=== PATIENT | female | born 2000 | race African-American/Black ===

== ENCOUNTER 2020-04-18 23:41 | Emergency (ER) | payer BC, MEDICAID, OTHER ==
[2020-04-19] MEDS ORDERED: IPRATROPIUM/ALBUTEROL 0.5-2.5 MG/3 ML AMPUL NEB ONE (00:17)
--- NOTE | 2020-04-19 00:19 | ER Document Report ---
ED Medical Screen (RME) - General Chief Complaint: Shortness Of Breath Stated Complaint: SHORTNESS OF BREATH AND COUGH Time Seen by Provider: 04/19/20 00:17 Primary Care Provider: RUBINA GUO MD [Primary Care Provider] - Follow up as needed Mode of Arrival: Ambulatory Information source: Patient Notes: Patient is a morbidly obese 20-year-old -[place] female coming in today with shortness of breath and symptoms of Covid. She tested positive for coronavirus yesterday while at college. She did not have her inhaler while she was there. She was told to come to the hospital to get checked to make sure she did not have pneumonia. General exam nontoxic Cardiac regular rate and rhythm Pulmonary diminished breath sounds bilaterally Abdomen protuberant Neuro no focal deficits I have greeted and performed a rapid initial assessment of this patient. A comprehensive ED assessment and evaluation of the patient, analysis of test results and completion of the medical decision making process will be conducted by additional ED providers. TRAVEL OUTSIDE OF THE [place] IN LAST 30 DAYS: No Doctor's Discharge - Discharge Referrals: RUBINA GUO MD [Primary Care Provider] - Follow up as needed
[2020-04-19 01:33] LABS: ABSOLUTE LYMPHOCYTES (AUTO) 0.8 10^3/uL (0.5-4.7); ABSOLUTE MONOCYTES (AUTO) 0.4 10^3/uL (0.1-1.4); ABSOLUTE NEUT (AUTO) 3.6 10^3/uL (1.7-8.2); BASOPHILS % (AUTO) 0.4 % (0-2); HEMOGLOBIN 13.9 g/dL (12.0-15.5); LYMPHOCYTES % (AUTO) 16.4 % (13-45); MEAN CORPUSCULAR HEMOGLOBIN 27.7 pg (27.0-33.4); MEAN CORPUSCULAR HGB CONC 33.9 g/dL (32.0-36.0); MEAN CORPUSCULAR VOLUME 82 fl (80-97); MONOCYTES % (AUTO) 8.5 % (3-13); PLATELET COUNT 233 10^3/uL (150-450); RED BLOOD COUNT 5.03 10^6/uL (3.72-5.28); RED CELL DISTRIBUTION WIDTH 13.9 % (11.5-14.0); SEGMENTED NEUTROPHILS % (AUTO) 74.7 % (42-78); TOTAL CELLS COUNTED % (AUTO) 100 %; WHITE BLOOD COUNT 4.8 10^3/uL (4.0-10.5)
[2020-04-19 01:43] LABS: ALBUMIN 3.9 g/dL (3.5-5.0); ALKALINE PHOSPHATASE 95 U/L (38-126); ANION GAP 10 (5-19); ASPARTATE AMINO TRANSFERASE 25 U/L (14-36); BILIRUBIN,DIRECT 0.2 mg/dL (0.0-0.4); BLOOD UREA NITROGEN 12 mg/dL (7-20); CALCIUM 8.8 mg/dL (8.4-10.2); CARBON DIOXIDE 22 mmol/L (22-30); CHLORIDE 100 mmol/L (98-107); GLUCOSE 116 mg/dL (75-110); POTASSIUM 4.7 mmol/L (3.6-5.0); TOTAL PROTEIN 7.1 g/dL (6.3-8.2)
--- NOTE | 2020-04-19 01:46 | RADIOLOGY REPORT (SQ) ---
CHEST X-RAY 1 VIEW on 04/19/2020 at 1:17 AM CLINICAL INDICATION: Shortness of breath, positive COVID 19 COMPARISON: None FINDINGS: Evaluation of the lungs especially superiorly is somewhat limited by technique and patient body habitus. Lungs appear clear. There is mild elevation of the right hemidiaphragm. Cardiac, hilar and mediastinal contours are within normal limits. Pulmonary vascularity is within normal limits. IMPRESSION: No pulmonary opacities identified. Please note that chest radiographs have low sensitivity for subtle groundglass opacities.
[2020-04-19] MEDS ORDERED: IBUPROFEN 600 MG TABLET PO ONE (03:24)
[2020-04-19] MEDS ORDERED: ACETAMINOPHEN 325 MG TABLET PO ONE (03:24)
[2020-04-19] MEDS ORDERED: ALBUTEROL SULFATE HFA (90 MCG/PUFF) 8 GM MDI IH ONE (03:24)
--- NOTE | 2020-04-19 03:38 | ER Document Report ---
ED General - General Chief Complaint: Shortness Of Breath Stated Complaint: SHORTNESS OF BREATH AND COUGH Time Seen by Provider: 04/19/20 00:17 Primary Care Provider: RUBINA GUO MD [COMMUNITY BASED STAFF] - Follow up as needed Mode of Arrival: Ambulatory Information source: Patient Notes: Patient is a morbidly obese 20-year-old -[place] female coming in today with shortness of breath and symptoms of Covid. She tested positive for coronavirus yesterday while at college. She did not have her inhaler while she was there. She was told to come to the hospital to get checked to make sure she did not have pneumonia. TRAVEL OUTSIDE OF THE [place] IN LAST 30 DAYS: No - Related Data Allergies/Adverse Reactions: No Known Allergies Allergy (Verified 04/19/20 01:24) Past Medical History - General Information source: Patient - Social History Smoking Status: Never Smoker Chew tobacco use (# tins/day): No Frequency of alcohol use: None Drug Abuse: None Family History: Reviewed & Not Pertinent Pulmonary Medical History: Reports: Hx Asthma Past Surgical History: Reports: Hx Tonsillectomy Review of Systems - Review of Systems Constitutional: Chills, Fever Respiratory: Cough, Short of breath -: Yes All other systems reviewed and negative Physical Exam - Vital signs Vitals: Temp Pulse Resp BP Pulse Ox 99.8 F 124 H 18 132/76 H 96 04/19/20 00:39 04/19/20 00:39 04/19/20 00:39 04/19/20 00:39 04/19/20 00:39 - Notes Notes: PHYSICAL EXAMINATION: GENERAL: Well-appearing, well-nourished and in no acute distress. HEAD: Atraumatic, normocephalic. EYES: Pupils equal round and reactive to light, extraocular movements intact, conjunctiva are normal. ENT: Nares patent, oropharynx clear without exudates. Moist mucous membranes. NECK: Normal range of motion, supple without lymphadenopathy LUNGS: Breath sounds clear to auscultation bilaterally and equal. No wheezes rales or rhonchi. HEART: Regular rate and rhythm without murmurs ABDOMEN: Soft, nontender, nondistended abdomen. No guarding, no rebound. No masses appreciated. Female : deferred Musculoskeletal: Normal range of motion, no pitting or edema. No cyanosis. NEUROLOGICAL: Cranial nerves grossly intact. Normal speech, normal gait. Normal sensory, motor exams PSYCH: Normal mood, normal affect. SKIN: Warm, Dry, normal turgor, no rashes or lesions noted. Course - Re-evaluation Re-evalutation: Patient appears well, nontoxic. She was febrile here in the emergency department and given antipyretics. Prior to my evaluation of the patient she was given a breathing treatment. She reports her work of breathing is much improved. She is COVID-19 positive on an outpatient test. She will be sent home with an albuterol inhaler, she does have a history of asthma. Very strict ED return precautions were discussed and patient verbalized understanding and agreement with same. - Vital Signs Vital signs: Temp Pulse Resp BP Pulse Ox 102.1 F H 110 H 18 135/80 H 98 04/19/20 03:50 04/19/20 03:50 04/19/20 03:50 04/19/20 03:50 04/19/20 03:50 - Laboratory Result Diagrams: 04/19/20 00:56 04/19/20 00:56 Laboratory results interpreted by me: 04/19/20 00:56 Sodium 131.9 L Glucose 116 H Discharge - Discharge Clinical Impression: COVID-19, Shortness of breath Fever Qualifiers: Fever type: unspecified Qualified Code(s): R50.9 - Fever, unspecified Condition: Stable Disposition: HOME, SELF-CARE Additional Instructions: If you were prescribed medications during today's visit please take them exactly as prescribed. Push fluids. Get plenty of rest. Tylenol or Motrin for fever and body aches. Good handwashing and stay away from others. Return to the emergency department with any new or worsening symptoms such as difficulty breathing, or any other worsening symptoms. Forms: Return to School Referrals: RUBINA GUO MD [COMMUNITY BASED STAFF] - Follow up as needed
[2020-04-19 03:52] VITALS: BP 135/80
== END 2020-04-19 03:50 | disposition home or self-care (01) ==
LOC: ER 23:41
DX: U07.1 COVID-19 (principal); R06.02 Shortness of breath; R50.9 Fever, unspecified; E66.01 Morbid (severe) obesity due to excess calories
CPT/HCPCS: 94640; 99284; 36415; 85025; 80053; 71045; J3490